=== PATIENT | male | born 1980 | race Caucasian/White ===

== ENCOUNTER 2019-04-03 18:38 | Emergency (ER) | payer BC, SELFPAY ==
[2019-04-03 18:38] VITALS: BP 139/83; PULSE 85; RESP 16; TEMP 36.8; O2SAT 97; BMI 29.3
[2019-04-03 19:00] VITALS: O2SAT 94
--- NOTE | 2019-04-03 19:01 | ED.VISSUMM ---
- ER Visit Summary Date of Service: 04/03/19 Chief Complaint: Wheezing History of Present Illness: The patient is a 38 M who presents with wheezing that has been waxing and waning over the past month. Patient states he went to an urgent care and was started on a tapered dose of steroid. Patient states he was also given inhalers and Singulair. Patient states he was improving until last couple days when he noticed his wheezing getting worse. Patient states his wheezing is worse with any exertion. Patient admits to some burning pain in his chest that comes and goes. Patient admits to a cough but denies any sputum. Patient denies any fevers or chills. Patient denies any upper respiratory symptoms. Physical Examination: Vital signs are stable. Patient is afebrile. Patient is in no acute distress. Pupils are equal, round, reactive to light. Extraocular muscles are intact. Conjunctiva is clear. Oral mucosa is pink and moist. Neck is supple. Trachea is midline. There is no JVD noted. Heart was regular rate and rhythm. Lungs showed mild inspiratory and expiratory wheezes bilaterally. Abdomen is soft. Bowel sounds are normal. There is no tenderness. Cranial nerves II through XII are intact. There are no focal motor or sensory deficits noted. Test Results: PA and lateral chest x-ray was obtained. There is no acute cardiopulmonary process noted. Emergency Department Course and Treatment: Patient was given a DuoNeb aerosol here. Patient was given a dose of prednisone here. Patient was given a repeat albuterol aerosol here. Patient was given a prescription for prednisone. Patient was instructed to continue his inhaler and Singulair as previously prescribed. Patient was instructed to follow-up with his primary care physician in 3 to 5 days for further evaluation. Patient understood and was agreeable with the plan. All questions were answered. Disposition: Discharge home Impression: Asthma exacerbation This note was generated with [employer] dictation software. It may contain incorrect words, spelling, and punctuation that were not noted in review of the chart prior to signing ED Disposition - Plan for ED Patient: Disposition: Home or Assisted Living Diagnosis: Asthma exacerbation Instructions: ASTHMA, Acute (Adult) Prescriptions: predniSONE tablet 60 mg PO DAILY #15 tab Prescription Printed Referrals: Brandon Resendiz MD [Primary Care Provider] - 3-5 Days
[2019-04-03 19:02] VITALS: BP 128/90; PULSE 80; RESP 24; O2SAT 95
[2019-04-03] MEDS: predniSONE 20 MG Tablet 60 MG PO (19:03)
[2019-04-03 19:13] VITALS: PULSE 76; RESP 14
[2019-04-03] MEDS: Ipratropium/Albuterol Sulfate 3 ML AMPUL.NEB INHALATION (19:13)
--- NOTE | 2019-04-03 19:23 | RAD_ITS ---
STUDY: X-RAY CHEST REASON FOR EXAM: Male, 38 years old. Wheezing and shortness of breath TECHNIQUE: PA and lateral COMPARISON: None. FINDINGS: The lungs are clear and expanded. There is no demonstrated pleural abnormality. Normal size heart. Normal mediastinum and sundar. Normal visualized pulmonary arteries. Normal visualized aortic arch and descending thoracic aorta. Normal visualized thoracic spine. Normal visualized ribs, clavicles, and shoulders. There is no demonstrated abnormality of the visualized soft tissue structures of the upper abdomen. RAD/Chest PA and Lateral IMPRESSION: Normal x-ray examination of the chest. Electronically Signed: Ld Zhang MD at 19:37 EDT , Service support ,
[2019-04-03 21:24] VITALS: PULSE 76; RESP 14
[2019-04-03] MEDS: Albuterol 2.5 MG/3 ML VIAL.NEB. INHALATION (21:24)
[2019-04-03 21:36] VITALS: BP 113/96; PULSE 87; RESP 16; O2SAT 97
== END 2019-04-03 21:30 | disposition home or self-care (01) ==
PROVIDERS: Emergency Provider Emergency Medicine
DX: J45.901 Unspecified asthma with (acute) exacerbation (principal); E03.9 Hypothyroidism, unspecified
CPT/HCPCS: 71046; 94640; 99282